=== PATIENT | female | born 1970 | race Two or more races ===

== ENCOUNTER 2021-01-26 02:43 | Emergency (ER) | payer SELFPAY ==
[~2021-01-26] VITALS: Ht 165.1 cm; Wt 74.1 kg
[2021-01-26 02:46] VITALS: BP 113/71
== END 2021-01-26 03:52 | disposition left against medical advice (07) ==
LOC: ER 02:43
DX: Z53.21 Procedure and treatment not carried out due to patient leaving prior to being seen by health care provider (principal)